=== PATIENT | female | born 1970 | race Hispanic/Latino ===

== ENCOUNTER 2017-10-14 22:49 | Emergency (ER) | payer SELFPAY ==
[~2017-10-14 22:49] MED LIST: Sodium Chloride 0.9% 1,000 ML BAG ONE
[2017-10-14] MEDS ORDERED: Ondansetron ODT 4 MG TAB ONE (23:07)
== END 2017-10-14 23:46 | disposition home or self-care (01) ==
LOC: MADERS 22:49
DX: R11.0 Nausea (principal); T40.4X5A Adverse effect of other synthetic narcotics, initial encounter
CPT/HCPCS: 99283; J7050; Q0162

== ENCOUNTER 2019-06-10 22:41 | Emergency (ER) | payer OTHER, SELFPAY ==
--- NOTE | 2019-06-10 23:29 | CT ---
CT HEAD WITHOUT IV CONTRAST COMPARISON: None HISTORY: Head injury. TECHNIQUE: Axial CT imaging at 5 mm intervals from vertex through skull base without contrast FINDINGS: There is no evidence of an acute infarction, hemorrhage, mass effect, or midline shift. The ventricul ar system is normal in size, shape, and position. Visualized paranasal sinuses are clear. Osseous structures appear intact. IMPRESSION: 1. No acute intracranial abnormality demonstrated.
--- NOTE | 2019-06-10 23:41 | CT ---
EXAM: CT cervical spine PROVIDED CLINICAL HISTORY: Axial loading head injury. TECHNIQUE: Contiguous axial CT images are obtained through the cervical spine from the skull base to the T3-4 le parish. Sagittal and coronal reformatted images are provided. COMPARISON: None FINDINGS: No evidence for fracture or traumatic subluxation. There is mild straightening of the normal cervical lordotic curvature. Mild degenerative changes are present at the C5-6 level with posterior osteophyte formation present. There is a small subcentimeter nonspecific lucency seen within the left posterolateral aspect of the T1 vertebral body which has an overall nonaggressive appearance, but the exact etiology is uncertain. No prevertebral soft tissue swelling apparent. Visualized lung apices appear clear. Visualized thyroid gland demonstrates a grossly normal nonenhanced CT appearance. IMPRESSION: No evidence for fracture or traumatic subluxation. Straightening of the normal cervical lordotic curvature which may be related to muscle spasm or posit ioning.
[2019-06-11] MEDS ORDERED: Ibuprofen 800 MG TAB ONE (00:01)
[2019-06-11] MEDS ORDERED: HYDROcodone/Acetaminophen 5/325 mg Tablet ONE (00:01)
== END 2019-06-11 00:25 | disposition home or self-care (01) ==
LOC: MADERS 22:41
DX: S16.1XXA Strain of muscle, fascia and tendon at neck level, initial encounter (principal); S00.93XA Contusion of unspecified part of head, initial encounter; W20.8XXA Other cause of strike by thrown, projected or falling object, initial encounter
CPT/HCPCS: 70450; 72125; L0120

== ENCOUNTER 2019-06-20 16:39 | Emergency (ER) | payer SELFPAY | END 2019-06-20 17:40 | disposition home or self-care (01) | LOC: MADERS 16:39 | DX: S16.1XXA Strain of muscle, fascia and tendon at neck level, initial encounter (principal); X50.1XXA Overexertion from prolonged static or awkward postures, initial encounter | CPT/HCPCS: 99283 ==

== ENCOUNTER 2020-02-12 21:42 | Emergency (ER) | payer OTHER, SELFPAY ==
--- NOTE | 2020-02-13 07:40 | RAD ---
RIGHT HAND 3 VIEWS: Date: 02/12/2020 PROVIDED CLINICAL HISTORY: Injury. FINDINGS: No evidence for fracture or other acute osseous abnormality. If there is persistent clinical concern, conservative management and follow-up imaging are advised. IMPRESSION: As above. POS: JUD[facility]
== END 2020-02-12 22:17 | disposition home or self-care (01) ==
LOC: MADERS 21:42
DX: S60.221A Contusion of right hand, initial encounter (principal); W22.8XXA Striking against or struck by other objects, initial encounter

== ENCOUNTER 2023-03-30 06:35 | Emergency (ER) | payer OTHER ==
[2023-03-30] MEDS ORDERED: Orphenadrine Citrate 60 MG/2 ML VIAL ONE (07:03)
[2023-03-30] MEDS ORDERED: Lactated Ringer's 1,000 ML ONE (07:03)
[2023-03-30] MEDS ORDERED: Acetaminophen 500 MG TAB ONE (07:03)
[2023-03-30 07:04] LABS: #Basophils 0.1 thou/uL (0.0-0.2); #Eosinphils 0.1 thou/uL (0.0-0.7); #Lymphocytes 2.9 thou/uL (1.20-3.40); #Monocytes 0.3 thou/uL (0.11-0.59); #Neutrophils 4.1 thou/uL (1.40-6.50); %Basophils 0.9 % (0.0-1.0); %Eosinophils 1.3 % (0.0-10.0); %Lymphocytes 39.1 % (21.0-51.0); %Monocytes 4.2 % (0.0-10.0); %Neutrophils 54.5 % (42.0-75.0); Hematocrit 39.8 % (36.0-47.0); Mean Corpuscular HGB CONC 32.7 g/dL (32.0-36.0); Mean Corpuscular Hemoglobin 29.5 pg (27.0-31.0); Mean Corpuscular Volume 90.2 fl (78.0-98.0); Mean Platelet Volume 7.5 fL (7.4-10.4); Platelet Count 286 10x3/uL (130-400); RBC Distribution Width 13.1 % (11.5-14.5); Red Blood Cell (RBC) Count 4.41 mill/uL (4.20-5.40); White Blood Cell (WBC) Count 7.5 10x3/uL (4.8-10.8)
[2023-03-30 07:17] LABS: BHCG - Serum Negative (NEGATIVE); Pregs Control Background? CLEAR/WHITE (CLR/WHITE); Pregs Control Bar Appear? YES (CONTROL BAR)
[2023-03-30 07:23] LABS: ALT (SGPT) 13 U/L (8-55); AST (SGOT) 11 U/L (5-34); Albumin 4.1 g/dL (3.5-5.0); Alkaline Phosphatase 76 U/L (40-110); Anion Gap 15 mmol/L (10-20); BUN (Urea Nitrogen) 15 mg/dL (9.8-20.1); Bilirubin, Total 0.3 mg/dL (0.2-1.2); Calc. Creatinine Clearance 0 mL/min (70-130); Calcium 9.3 mg/dL (7.8-10.44); Carbon Dioxide 24 mmol/L (22-29); Chloride 106 mmol/L (98-107); Estimated GFR 101; Globulin 3.1 g/dL (2.4-3.5); Glucose 107 mg/dL (70-105); Lipase 21 U/L (8-78); Potassium 3.8 mmol/L (3.5-5.1); Protein, Total 7.2 g/dL (6.0-8.3); Sodium 141 mmol/L (136-145)
[2023-03-30 07:57] LABS: Bilirubin Negative (Negative); Blood, Urine Negative (Negative); Glucose, Urine (Dipstick) Negative (Negative); Ketone, Urine Negative (Negative); Leukocyte Negative (Negative); Nitrite Negative (Negative); Protein, Urine (Dipstick) Negative (Neg-Trace); Specific Gravity, Urine 1.025 (1.005-1.030); Urobilinogen 0.2 mg/dL (Less than 2)
[2023-03-30 07:58] LABS: CAUTI Indications for Culture Pelvic or flank pain; Clarity Hazy (Clear)
[2023-03-30 08:02] LABS: Bacteria/HPF 1+ HPF (None Seen); RBC/HPF 0-3 HPF (0-3); WBC/HPF 0-3 HPF (0-3)
[2023-03-30 08:03] LABS: Urine Culture Reflex No No
[2023-03-30] MEDS ORDERED: Iopamidol 370 76% 200 ML VIAL ONE (09:11)
== END 2023-03-30 08:40 | disposition home or self-care (01) ==
LOC: MADERS 06:35
DX: S16.1XXA Strain of muscle, fascia and tendon at neck level, initial encounter (principal); R07.9 Chest pain, unspecified; M54.6 Pain in thoracic spine; V89.2XXA Person injured in unspecified motor-vehicle accident, traffic, initial encounter
CPT/HCPCS: 70450; 71260; 72125; 74177; 80053; 81001; 83690; 84484; 84703; 85025; 93005; 94760; J2360; J7120